=== PATIENT | female | born 1995 | race Caucasian/White ===

== ENCOUNTER 2018-05-27 10:35 | Inpatient (IN) | payer OTHER ==
[2018-07-25] MEDS ORDERED: RINGERS SOLUTION,LACTATED 1,000 ML IV PRN (23:59)
[2018-07-25] MEDS ORDERED: RINGERS SOLUTION,LACTATED 300 ML IV ONE (23:59)
[2018-07-25] MEDS ORDERED: DINOPROSTONE 10 MG VAGINAL INSERT.SR PV PRN (23:59)
[2018-07-26 00:19] LABS: APPEARANCE,URINE TURBID; BILIRUBIN,URINE NEGATIVE (NEGATIVE); COLOR,URINE YELLOW; GLUCOSE, URINE NEGATIVE (NEGATIVE); KETONES,URINE NEGATIVE (NEGATIVE); LEUKOCYTE ESTERASE,URINE NEGATIVE (NEGATIVE); NITRITE,URINE NEGATIVE (NEGATIVE); PROTEIN,URINE 30 mg/dL (NEGATIVE); URINE SPECIFIC GRAVITY 1.017; UROBILINOGEN,URINE NEGATIVE mg/dL (<2.0)
[2018-07-26 00:30] LABS: URINE AMPHETAMINES SCREEN NEGATIVE; URINE BARBITURATES SCREEN NEGATIVE; URINE BENZODIAZEPINES SCREEN NEGATIVE; URINE COCAINE SCREEN NEGATIVE; URINE METHADONE SCREEN NEGATIVE; URINE PHENCYCLIDINE SCREEN NEGATIVE
[2018-07-26 00:38] LABS: ABSOLUTE BASOPHILS # (AUTO) 0.1 10^3/uL (0.0-0.2); ABSOLUTE EOSINOPHILS # (AUTO) 0.1 10^3/uL (0.0-0.6); ABSOLUTE LYMPHOCYTES (AUTO) 2.2 10^3/uL (0.5-4.7); ABSOLUTE MONOCYTES (AUTO) 0.8 10^3/uL (0.1-1.4); EOSINOPHILS % (AUTO) 0.6 % (0-6); HEMATOCRIT 37.8 % (36.0-47.0); HEMOGLOBIN 13.1 g/dL (12.0-15.5); LYMPHOCYTES % (AUTO) 21.8 % (13-45); MEAN CORPUSCULAR HGB CONC 34.6 g/dL (32.0-36.0); MEAN CORPUSCULAR VOLUME 87 fl (80-97); MONOCYTES % (AUTO) 7.7 % (3-13); PLATELET COUNT 296 10^3/uL (150-450); RED BLOOD COUNT 4.37 10^6/uL (3.72-5.28); RED CELL DISTRIBUTION WIDTH 14.7 % (11.5-14.0); SEGMENTED NEUTROPHILS % (AUTO) 68.9 % (42-78); TOTAL CELLS COUNTED % (AUTO) 100 %; WHITE BLOOD COUNT 10.1 10^3/uL (4.0-10.5)
[2018-07-26 00:44] LABS: URINE MARIJUANA (THC) SCREEN NEGATIVE
[2018-07-26] MEDS ORDERED: OXYTOCIN 10 UNIT/ML VIAL ONE (00:48)
[2018-07-26] MEDS ORDERED: OXYTOCIN/NORMAL SALINE 20 UNIT/1,000 ML RTUINJ ONE (00:49)
[2018-07-26] MEDS ORDERED: DINOPROSTONE 10 MG VAGINAL INSERT.SR ONE (00:49)
[2018-07-26] MEDS ORDERED: MISOPROSTOL 0.2 MG TABLET ONE (00:49)
[2018-07-26] MEDS ORDERED: LIDOCAINE 1% INJ-PF (10 MG/ML) 30 ML SDV ONE (00:49)
[2018-07-26] MEDS ORDERED: ZOLPIDEM TARTRATE 5 MG TABLET ONE (02:16)
[2018-07-26] MEDS ORDERED: OXYTOCIN/NORMAL SALINE 20 UNIT/1,000 ML RTUINJ IV PRN (13:40)
--- NOTE | 2018-07-26 15:17 | Admission Physical ---
Datetime Report Generated by CPN: 07/26/2018 15:17 CURRENT ADMISSION Chief Complaint: Scheduled Induction of Labor Indication for Induction: PreEclampsia Admit Impression : Term, Intrauterine Admit Plan: Admit to Unit; Initiate Labor Induction Protocol ALLERGIES Medication Allergies: No Medication Allergies: No Known Allergies (07/25/2018) Latex: No Latex Allergies Food Allergies: none Environmental Allergies: none OBSTETRICAL HISTORY EDC: 08/14/2018 00:00 : 1 Para: 0 Term: 0 : 0 SAB: 0 IAB: 0 Ectopic: 0 Livin Cesareans: 0 VBACs: 0 Multiple Births: 0 Gestational Diabetes: Yes Rh Sensitization: No Incompetent Cervix: No ELAN: No Infertility: No ART Treatment: No Uterine Anomaly: No IUGR: No Hx Previous C/S: No Macrosomia: No Hx Loss/Stillborn: No PIH: No Hx : No Placenta Previa/Abruption: No Depression/PP Depression: No PTL/PROM: No Post Hemorrhage: No Current Procedures: Ultrasound; NST Obstetrical History Comments: G1- Current , GDM, pre-e SEE RECORDS Alcohol: No Marijuana : No Cocaine: No Other Illicit Drugs: No Cigarettes: Never Smoker. 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 Surgery: No Heart Disease: No Hosp/Surgery: Yes Autoimmune Disorder: No Anesthetic Complications: No Kidney Disease: No Abnormal Pap Smear: No Neuro/Epilepsy: No Psychiatric Disorders: No Other Medical Diseases: No Hepatitis/Liver Disease: No Significant Family History: No Varicosities/Phlebitis: No Trauma/Violence : No Thyroid Dysfunction: No Medical History Comments: tonsilectomy, adenoidectomy hx of blood clots in lungs 2016 INFECTIOUS HISTORY Gonorrhea: No Genital Herpes: No Chlamydia: No Tuberculosis: No Syphilis: No Hepatitis: No HIV/AIDS Exposure: No Rash or Viral Illness: No HPV: No PHYSICAL EXAM General: Normal HEENT: Normal Neurologic: Normal Thyroid: Deferred Heart: Normal Lungs: Normal Breast: Deferred Back: Deferred Abdomen: Normal Genitourinary Exam: Deferred Extremities: Normal DTRs: Normal Pelvic Type: Not Done Vital Signs: Reviewed MEMBRANES Membranes: Intact FETUS A EGA: 37.2 Monitoring: External US FHR- Baseline: 150 Accelerations: 15X15 Presentation: Vertex Admit Comment: G1 Scheduled IOL for pre-eclampsia Had Cervidil at 0100, removed at 1300 Beginning Pitocin now Hx PE in 2025 while on ocps GDM Antepartum records in chart PLANS FOR LABOR AND DELIVERY Labor and Delivery: None Pain Management: Natural Feeding Preference: Breast Benefit of Breast Feed Discussed: Yes Circumcision: N/A INFORMED CONSENT Assignment: Harmeet Parks MD Signature: with User ID: Charlotte : with User ID: Charlotte : I personally evaluated and examined the patient in conjunction with the MLP and agree with the assessment, treatment plan and disposition.
[2018-07-26] MEDS: ZOLPIDEM TARTRATE 5 MG TABLET PO SCH (15:45)
[2018-07-26] MEDS ORDERED: NALBUPHINE HCL INJ 10 MG/1 ML AMPULE ONE (17:33)
[2018-07-26] MEDS ORDERED: NALBUPHINE HCL INJ 10 MG/1 ML AMPULE INJ ONE (17:35)
[2018-07-26] MEDS ORDERED: PHENYLEPHRINE HCL INJ/PF 10 MG/1 ML SDV ONE (20:17)
[2018-07-26] MEDS ORDERED: EPHEDRINE SULFATE INJ 50 MG/1 ML AMPULE ONE (20:18)
[2018-07-26] MEDS ORDERED: FENTANYL/BUPIVACAINE/NS/PF 300 MCG/150 ML RTUINJ EPI ONE (20:18)
[2018-07-26] MEDS ORDERED: FENTANYL CITRATE INJ/PF 100 MCG/2 ML AMPUL ONE (20:18)
[2018-07-26] MEDS ORDERED: BUPIVACAINE HCL 0.25 % INJ/PF (2.5 MG/1 ML) 30 ML VIAL ONE (20:18)
[2018-07-26 20:39] LABS: ABSOLUTE LYMPHOCYTES (AUTO) 1.3 10^3/uL (0.5-4.7); ABSOLUTE MONOCYTES (AUTO) 0.9 10^3/uL (0.1-1.4); ABSOLUTE NEUT (AUTO) 16.2 10^3/uL (1.7-8.2); BASOPHILS % (AUTO) 0.2 % (0-2); EOSINOPHILS % (AUTO) 0.1 % (0-6); HEMATOCRIT 38.5 % (36.0-47.0); HEMOGLOBIN 13.3 g/dL (12.0-15.5); LYMPHOCYTES % (AUTO) 6.9 % (13-45); MEAN CORPUSCULAR HEMOGLOBIN 29.8 pg (27.0-33.4); MEAN CORPUSCULAR HGB CONC 34.6 g/dL (32.0-36.0); MEAN CORPUSCULAR VOLUME 86 fl (80-97); MONOCYTES % (AUTO) 4.8 % (3-13); PLATELET COUNT 273 10^3/uL (150-450); RED BLOOD COUNT 4.46 10^6/uL (3.72-5.28); RED CELL DISTRIBUTION WIDTH 14.1 % (11.5-14.0); TOTAL CELLS COUNTED % (AUTO) 100 %; WHITE BLOOD COUNT 18.4 10^3/uL (4.0-10.5)
[2018-07-26] MEDS ORDERED: LIDOCAINE 1.5%/EPINEPHRINE INJ 5 ML AMP ONE (21:00)
[2018-07-27] MEDS ORDERED: CITRIC ACID/SODIUM CITRATE ORAL SOLN 15 ML UDCUP ONE (01:24)
[2018-07-27] MEDS ORDERED: CEFAZOLIN 2 GM/D5W RTU 0 GM/0 ML RTUPB IV ONE (01:25)
[2018-07-27] MEDS ORDERED: PSEUDOEPHEDRINE HCL 30 MG TABLET PO PRN (02:07)
[2018-07-27] MEDS ORDERED: ACETAMINOPHEN 650 MG SUPP.RECT PR PRN (02:07)
[2018-07-27] MEDS ORDERED: PROMETHAZINE HCL 25 MG TABLET PO PRN (02:07)
[2018-07-27] MEDS ORDERED: ZOLPIDEM TARTRATE 5 MG TABLET PO PRN (02:07)
[2018-07-27] MEDS ORDERED: DIPHENHYDRAMINE HCL 25 MG CAPSULE PO PRN (02:07)
[2018-07-27] MEDS ORDERED: ACETAMINOPHEN WITH CODEINE #3 TABLET PO PRN (02:07)
[2018-07-27] MEDS ORDERED: DIPH/PERTUSS(ACELL)/TETANUS VAC/PF 0.5 ML SYR (>=10YO) IM PRN (02:07)
[2018-07-27] MEDS ORDERED: OXYTOCIN/NORMAL SALINE 20 UNIT/1,000 ML RTUINJ IV PRN (02:07)
[2018-07-27] MEDS ORDERED: BENZOCAINE/MENTHOL AEROSOL SPRAY 56 ML TOP PRN (02:07)
[2018-07-27] MEDS ORDERED: DIBUCAINE 1% OINTMENT 56 GM TP PRN (02:07)
[2018-07-27] MEDS ORDERED: PROMETHAZINE HCL 25 MG SUPP.RECT PR PRN (02:07)
[2018-07-27] MEDS ORDERED: PROMETHAZINE HCL INJ 25 MG/1 ML VIAL IV PRN (02:07)
[2018-07-27] MEDS ORDERED: MEASLES,MUMPS&RUBELLA VACC/PF 0.5 ML VIAL SUBCUT PRN (02:07)
[2018-07-27] MEDS ORDERED: MAGNESIUM HYDROXIDE SUSP 30 ML UDCUP PO PRN (02:07)
[2018-07-27] MEDS ORDERED: GLYCERIN/WITCH HAZEL LEAF 1 EACH MED..WIPE TP PRN (02:07)
[2018-07-27] MEDS ORDERED: NA PHOS,M-B/NA PHOS,DI-BA (ADULT) 133 ML ENEMA PR PRN (02:07)
[2018-07-27] MEDS ORDERED: CEFAZOLIN 1 GM/D5W RTU 1 GM/50 ML RTUPB IV ONE ×2 (02:09→02:25)
--- NOTE | 2018-07-27 04:06 | Delivery Summary ---
Del Sum A-C Datetime Report Generated by CPN: 07/27/2018 04:05 DELIVERY PERSONNEL DELIVERY PERSONNEL: [id number] Delivery Doctor:: Harmeet Parks MD Labor and Delivery Nurse:: Sandy Cowan RN (Annotations: Data stored by Benjamín on behalf of user) Nursery Nurse:: Kristin Connolly RN Script Developer/ETIOLOGY TEACHER: Karis Hernandez, ST MATERNAL INFORMATION Delivery Anesthesia: Epidural Medications After Delivery: Pitocin Drip 20 Units/1000ml NSS; Cytotec 1000mcg Per Rectum/Vagina Maternal Complications: Other Complication Details: gestational diabetes, preeclampsia LABOR SUMMARY EDC: 08/14/2018 00:00 No. Babies in Womb: 1 Labor Anesthesia: Epidural LABOR INFORMATION Reason for Induction: Pre-Eclampsia; Other Reason for Induction- Other: GDM Onset of Labor: 07/27/2018 17:35 Complete Dilatation: 07/27/2018 00:53 Cervical Ripening Agents: Cervidil Oxytocin: Induction Group B Beta Strep: negative Steroids Given: None Reason Steroids Not Administered: Not Applicable MEMBRANES Membranes Rupture Method: Spontaneous Rupture of Membranes: 07/27/2018 15:43 Length of Rupture (hr): -14.03 Amniotic Fluid Color: Clear Amniotic Fluid Amount: Small Amniotic Fluid Odor: Normal STAGES OF LABOR Stage 1 hr: -16 Stage 1 min: -42 Stage 2 hr: 0 Stage 2 min: 48 Stage 3 hr: 0 Stage 3 min: 3 Total Time in Labor hr: -15 Total Time in Labor min: -51 VAGINAL DELIVERY Episiotomy: None Laceration #1: Vaginal Laceration Extension #1: N/A Laceration Repair: Yes Laceration Repair Note: 2=0 vicryl; CSECTION DELIVERY Primary Indication: N/A BABY A INFORMATION Infant Delivery Date/Time: 07/27/2018 01:41 Method of Delivery: Vaginal Born in Route : No : N/A Forceps: N/A Vacuum Extraction: Successful Shoulder Dystocia : No ASSISTED DELIVERY BABY A Indication for Assisted Delivery: nonreassuring FHTs Catheter Prior to Procedure: Yes Station Vacuum/Forcep Apply: 0 Position Vacuum/Forcep Apply: Right Occipital Anterior Vacuum Number of Pulls: 2 Vacuum Number of PopOffs: 0 Reduce Pressure btwn Ctx: Yes Vacuum Repairer Art Objects: kiwi PRESENTATION/POSITION BABY A Presentation: Cephalic Cephalic Presentation: Vertex Vertex Position: Right Occipital Anterior Breech Presentation: N/A PLACENTA INFORMATION BABY A Placenta Delivery Time : 07/27/2018 01:44 Placenta Method of Delivery: Spontaneous Placenta Status: Delivered SCORES BABY A Heart Rate 1 min: >100 bpm Resp Effort 1 min: Good Cry Reflex Irritability 1 min: Cough or Sneeze or Pulls Away Muscle Tone 1 min: Active Motion Color 1 min: Blue/Pale Resuscitation Effort 1 min: Tactile Stimulation SCORE 1 MIN: 8 Heart Rate 5 min: >100 bpm Resp Effort 5 min: Good Cry Reflex Irritability 5 min: Cough or Sneeze or Pulls Away Muscle Tone 5 min: Active Motion Color 5 min: Body [place], Extremities Blue Resuscitation Effort 5 min: Tactile Stimulation SCORE 5 MIN: 9 INFANT INFORMATION BABY A Infant Sex: Female IDENTIFICATION BABY A Infant Verification Date/Time: 07/27/2018 02:16 ID Band Number: [id number] Mother's Name Verified: Yes Infant RN Verifying Infant: C Gentilin, RN C. Bactat,RN WEIGHT/LENGTH BABY A Infant Birthweight (gm): 3133 Infant Weight (lb): 6 Infant Weight (oz): 15 Length (in): 20.00 Infant Length (cm): 50.80 CORD INFORMATION BABY A No. Cord Vessels: 3 Nuchal Cord : Around Neck x1, Tight Cord Blood Taken: Yes-For Storage (Mom's Blood type +) Infant Suction: None ASSESSMENT BABY A Infant Complications: None Physical Findings at Delivery: Within Normal Limits Skin to Skin: Yes Transferred To: Remains with Mother SIGNATURES Signature: with User ID: [email or web address] : I personally evaluated and examined the patient in conjunction with the MLP and agree with the assessment, treatment plan and disposition.
[2018-07-27] MEDS: ZOLPIDEM TARTRATE 5 MG TABLET PO SCH (04:52)
[2018-07-27] MEDS: IBUPROFEN 800 MG TABLET PO SCH ×3 (06:09→21:29)
[2018-07-27] MEDS: SENNOSIDES/DOCUSATE 8.6-50 MG 1 EACH TABLET PO SCH (09:38)
[2018-07-27] MEDS: DOCUSATE SODIUM 100 MG CAPSULE PO SCH ×2 (09:38→18:03)
[2018-07-27] MEDS: PRENATAL VITAMIN W DHA CAPSULE PO SCH (09:38)
[2018-07-27] MEDS: FAMOTIDINE 20 MG TABLET PO SCH ×2 (09:38→21:30)
[2018-07-27] MEDS: FERROUS SULFATE 325 MG TABLET PO SCH ×2 (09:38→18:03)
--- NOTE | 2018-07-27 10:26 | PDOC PROGRESS REPORT ---
Subjective-OB Progress Note for:: 07/27/18 Subjective: Doing well, no c/o, voiding, eating well, ambulating Physical Exam (OB) Vital Signs: Temp Pulse Resp BP Pulse Ox 98.7 F 100 16 125/79 96 07/27/18 08:03 07/27/18 08:03 07/27/18 08:03 07/27/18 08:03 07/27/18 08:03 Intake & Output 07/26/18 07/27/18 07/28/18 06:59 06:59 06:59 Weight 85 kg - PIH/Pre-Eclampsia DTR's: 1 + Clonus: Negative Headache: Absent Epigastric Pain: No Visual Changes: No - Lochia Lochia Amount: Scant < 10 ml Lochia Color: Rubra/Red - Abdomen Description: Tender Hernia Present: No Fundal Description: Firm, Midline Fundal Height: u/u - u/2 Objective-Diagnostic Laboratory: 07/26/18 20:31 07/26/18 20:31 WBC 18.4 H RBC 4.46 Hgb 13.3 Hct 38.5 MCV 86 MCH 29.8 MCHC 34.6 RDW 14.1 H Plt Count 273 Seg Neutrophils % 88.0 H Lymphocytes % 6.9 L Monocytes % 4.8 Eosinophils % 0.1 Basophils % 0.2 Absolute Neutrophils 16.2 H Absolute Lymphocytes 1.3 Absolute Monocytes 0.9 Absolute Eosinophils 0.0 Absolute Basophils 0.0 Assessment and Plan(PN) - Assessment and Plan (1) Pre-eclampsia affecting childbirth Is this a current diagnosis for this admission?: Yes (2) Gestational diabetes mellitus Qualifiers: Gestational diabetes mellitus control: diet-controlled Trimester: second trimester Qualified Code(s): O24.410 - Gestational diabetes mellitus in , diet controlled Is this a current diagnosis for this admission?: Yes (3) Delivery normal Is this a current diagnosis for this admission?: Yes - Time Spent with Patient Time with patient: Less than 15 minutes Medications reviewed and adjusted accordingly: Yes - Disposition Anticipated Discharge: Home Within: within 24 hours
--- NOTE | 2018-07-27 10:30 | PDOC DISCHARGE SUMMARY ---
Final Diagnosis Discharge Date: 07/29/18 - Final Diagnosis (1) Pre-eclampsia affecting childbirth Is this a current diagnosis for this admission?: Yes (2) Gestational diabetes mellitus Is this a current diagnosis for this admission?: Yes (3) Delivery normal Is this a current diagnosis for this admission?: Yes Discharge Data - Discharge Medication Prescriptions: RX: Enoxaparin Sodium [Lovenox Inj 40 mg/0.4 ml Disp.syrin] 40 mg SUBCUT DAILY #30 disp.syrin Home Medications: RX: Enoxaparin Sodium [Lovenox Inj 40 mg/0.4 ml Disp.syrin] 40 mg SUBCUT DAILY #30 disp.syrin 07/27/18 Gestational Age: 37.2 Reason(s) for Admission: Induction of Labor, Medical Complications, Gestional Diabetes Procedures: NST, Ultrasound Intrapartum Procedure(s): Spontaneous Vaginal Delivery Complication(s): Laceration-Vaginal Laceration-Degree: 1st - [place] Data Baby 1 Female at 1 minute: 8 at 5 minutes: 9 Weight: 3.147 kg Home with Mother: Yes Complications: No - Diagnosis Test Laboratory: Temp Pulse Resp BP Pulse Ox 98.7 F 100 16 125/79 96 07/27/18 08:03 07/27/18 08:03 07/27/18 08:03 07/27/18 08:03 07/27/18 08:03 07/26/18 07/26/18 07/26/18 00:00 00:22 20:31 RBC 4.37 4.46 Hgb 13.1 13.3 Hct 37.8 38.5 Urine Opiates Screen NEGATIVE - Discharge information/Instructions Discharge Activity: Activity As Tolerated, No Lifting Over 10 Pounds, No Lifting/Push/Pulling, Pelvic Rest Discharge Diet: As Tolerated, Regular Disposition: HOME, SELF-CARE Follow up with: [facility] in: 1, Weeks
[2018-07-28] MEDS: IBUPROFEN 800 MG TABLET PO SCH ×3 (05:20→21:22)
[2018-07-28 06:48] LABS: MEAN CORPUSCULAR HEMOGLOBIN 30.2 pg (27.0-33.4); MEAN CORPUSCULAR HGB CONC 34.8 g/dL (32.0-36.0); MEAN CORPUSCULAR VOLUME 87 fl (80-97); PLATELET COUNT 192 10^3/uL (150-450); RED BLOOD COUNT 3.45 10^6/uL (3.72-5.28); RED CELL DISTRIBUTION WIDTH 14.6 % (11.5-14.0); WHITE BLOOD COUNT 11.2 10^3/uL (4.0-10.5)
[2018-07-28 06:52] LABS: HEMOGLOBIN 10.4 g/dL (12.0-15.5)
--- NOTE | 2018-07-28 09:16 | PDOC PROGRESS REPORT ---
Subjective-OB Progress Note for:: 07/28/18 Subjective: Doing well, no c/o, hsb at BS asleep Physical Exam (OB) Vital Signs: Temp Pulse Resp BP Pulse Ox 97.9 F 78 16 134/80 H 100 07/28/18 07:21 07/28/18 07:21 07/28/18 07:21 07/28/18 07:21 07/28/18 07:21 Intake & Output 07/27/18 07/28/18 07/29/18 06:59 06:59 06:59 Intake Total 1070 Balance 1070 Weight 85 kg Baby 1 Female 3.147 kg - PIH/Pre-Eclampsia DTR's: 2 + Clonus: Negative Headache: Absent Epigastric Pain: No Visual Changes: No - Lochia Lochia Amount: Scant < 10 ml Lochia Color: Serosa/Brown - Abdomen Description: Soft Hernia Present: No Fundal Description: Firm, Midline Fundal Height: u/u - u/2 Objective-Diagnostic Laboratory: 07/28/18 06:38 07/28/18 06:38 WBC 11.2 H RBC 3.45 L Hgb 10.4 L D Hct 30.0 L MCV 87 MCH 30.2 MCHC 34.8 RDW 14.6 H Plt Count 192 Assessment and Plan(PN) - Assessment and Plan (1) Pre-eclampsia affecting childbirth Is this a current diagnosis for this admission?: Yes (2) Gestational diabetes mellitus Qualifiers: Gestational diabetes mellitus control: diet-controlled Trimester: second trimester Qualified Code(s): O24.410 - Gestational diabetes mellitus in , diet controlled Is this a current diagnosis for this admission?: Yes (3) Delivery normal Is this a current diagnosis for this admission?: Yes - Time Spent with Patient Time with patient: Less than 15 minutes Medications reviewed and adjusted accordingly: Yes - Disposition Anticipated Discharge: Home Within: within 24 hours
[2018-07-28] MEDS: DOCUSATE SODIUM 100 MG CAPSULE PO SCH ×2 (09:42→18:30)
[2018-07-28] MEDS: FAMOTIDINE 20 MG TABLET PO SCH ×2 (09:42→21:23)
[2018-07-28] MEDS: SENNOSIDES/DOCUSATE 8.6-50 MG 1 EACH TABLET PO SCH (09:42)
[2018-07-28] MEDS: FERROUS SULFATE 325 MG TABLET PO SCH ×2 (09:42→18:30)
[2018-07-28] MEDS: PRENATAL VITAMIN W DHA CAPSULE PO SCH (09:42)
[2018-07-29] MEDS: IBUPROFEN 800 MG TABLET PO SCH (05:12)
--- NOTE | 2018-07-29 09:38 | PDOC PROGRESS REPORT ---
Subjective-OB Progress Note for:: 07/29/18 Subjective: Doing well, no c/o, ready to go home, hsb at BS Physical Exam (OB) Vital Signs: Temp Pulse Resp BP Pulse Ox 98.2 F 67 20 140/84 H 100 07/29/18 08:00 07/29/18 08:00 07/29/18 08:00 07/29/18 08:00 07/29/18 08:00 Intake & Output 07/28/18 07/29/18 07/30/18 06:59 06:59 06:59 Intake Total 1070 1250 Balance 1070 1250 Baby 1 Female 3.147 kg - PIH/Pre-Eclampsia DTR's: 2 + Clonus: Negative Headache: Absent Epigastric Pain: No Visual Changes: No - Lochia Lochia Amount: Scant < 10 ml Lochia Color: Serosa/Brown - Abdomen Description: Soft Hernia Present: No Fundal Description: Firm, Midline Fundal Height: u/u - u/2 Objective-Diagnostic Laboratory: 07/28/18 06:38 Assessment and Plan(PN) - Assessment and Plan (1) Pre-eclampsia affecting childbirth Is this a current diagnosis for this admission?: Yes (2) Gestational diabetes mellitus Qualifiers: Gestational diabetes mellitus control: diet-controlled Trimester: second trimester Qualified Code(s): O24.410 - Gestational diabetes mellitus in , diet controlled Is this a current diagnosis for this admission?: Yes (3) Delivery normal Is this a current diagnosis for this admission?: Yes - Time Spent with Patient Time with patient: Less than 15 minutes Medications reviewed and adjusted accordingly: Yes - Disposition Anticipated Discharge: Home Within: within 24 hours
--- NOTE | 2018-07-29 09:42 | PDOC DISCHARGE SUMMARY ---
Final Diagnosis Discharge Date: 07/29/18 - Final Diagnosis (1) Pre-eclampsia affecting childbirth Is this a current diagnosis for this admission?: Yes (2) Gestational diabetes mellitus Is this a current diagnosis for this admission?: Yes (3) Delivery normal Is this a current diagnosis for this admission?: Yes Discharge Data - Discharge Medication Prescriptions: Enoxaparin Sodium [Lovenox Inj 40 mg/0.4 ml Disp.syrin] 40 mg SUBCUT DAILY #30 disp.syrin Home Medications: Enoxaparin Sodium [Lovenox Inj 40 mg/0.4 ml Disp.syrin] 40 mg SUBCUT DAILY #30 disp.syrin 07/27/18 Gestational Age: 37.3 Reason(s) for Admission: Induction of Labor, PIH, Gestional Diabetes Procedures: NST, Ultrasound Intrapartum Procedure(s): Spontaneous Vaginal Delivery Complication(s): Laceration-Vaginal, Spinal Headache - [place] Data Baby 1 Female at 1 minute: 8 at 5 minutes: 9 Weight: 3.147 kg Home with Mother: Yes Complications: No - Diagnosis Test Laboratory: Temp Pulse Resp BP Pulse Ox 98.2 F 67 20 140/84 H 100 07/29/18 08:00 07/29/18 08:00 07/29/18 08:00 07/29/18 08:00 07/29/18 08:00 07/26/18 07/26/18 07/26/18 00:00 00:22 20:31 RBC 4.37 4.46 Hgb 13.1 13.3 Hct 37.8 38.5 Urine Opiates Screen NEGATIVE 07/28/18 06:38 RBC 3.45 L Hgb 10.4 L D Hct 30.0 L Urine Opiates Screen - Discharge information/Instructions Discharge Activity: Activity As Tolerated, No Lifting Over 10 Pounds, No Lifting/Push/Pulling, Pelvic Rest Discharge Diet: As Tolerated, Regular Disposition: HOME, SELF-CARE Follow up with: [facility] in: 1, Weeks
[2018-07-29] MEDS: PRENATAL VITAMIN W DHA CAPSULE PO SCH (10:14)
[2018-07-29] MEDS: SENNOSIDES/DOCUSATE 8.6-50 MG 1 EACH TABLET PO SCH (10:14)
[2018-07-29] MEDS: FERROUS SULFATE 325 MG TABLET PO SCH (10:14)
[2018-07-29] MEDS: DOCUSATE SODIUM 100 MG CAPSULE PO SCH (10:14)
[2018-07-29] MEDS: FAMOTIDINE 20 MG TABLET PO SCH (10:14)
[2018-07-29 12:28] VITALS: BP 139/83
== END 2018-07-29 15:48 | disposition home or self-care (01) | DRG 807 ==
LOC: LR 07-25 23:49 → 2N 07-27 04:20
PROVIDERS: ADMIT Obstetrics & Gynecology Gynecology; ATTEND Obstetrics & Gynecology Gynecology
PROC: 10D07Z6 Extraction of Products of Conception, Vacuum, Via Natural or Artificial Opening (ICD-10-PCS; principal; 2018-07-27)
PROC: 0HQ9XZZ Repair Perineum Skin, External Approach (ICD-10-PCS; 2018-07-27)
DX: O14.94 Unspecified pre-eclampsia, complicating childbirth (principal); Z37.0 Single live birth; O24.420 Gestational diabetes mellitus in childbirth, diet controlled; O69.81X0 Labor and delivery complicated by cord around neck, without compression, not applicable or unspecified; O76 Abnormality in fetal heart rate and rhythm complicating labor and delivery; O13.4 Gestational [pregnancy-induced] hypertension without significant proteinuria, complicating childbirth; O70.0 First degree perineal laceration during delivery; Z3A.37 37 weeks gestation of pregnancy
CPT/HCPCS: 36415; 80307; 81001; 85025; 85027; 86592; 86850; 86900; 86901; 94760; J0690; J2300; J2370; J2590; J3010; J3490

== ENCOUNTER 2018-07-18 09:56 | Outpatient (CLI) | payer OTHER ==
[2018-07-18 10:45] LABS: AMORPHOUS SEDIMENT,URINE TRACE /HPF; APPEARANCE,URINE CLOUDY; BILIRUBIN,URINE NEGATIVE (NEGATIVE); COLOR,URINE YELLOW; GLUCOSE, URINE NEGATIVE (NEGATIVE); KETONES,URINE NEGATIVE (NEGATIVE); LEUKOCYTE ESTERASE,URINE MODERATE (NEGATIVE); NITRITE,URINE NEGATIVE (NEGATIVE); PROTEIN,URINE NEGATIVE (NEGATIVE); URINE SPECIFIC GRAVITY 1.012; UROBILINOGEN,URINE NEGATIVE mg/dL (<2.0)
[2018-07-18 10:52] LABS: URINE AMPHETAMINES SCREEN NEGATIVE; URINE BARBITURATES SCREEN NEGATIVE; URINE BENZODIAZEPINES SCREEN NEGATIVE; URINE COCAINE SCREEN NEGATIVE; URINE MARIJUANA (THC) SCREEN NEGATIVE; URINE METHADONE SCREEN NEGATIVE; URINE PHENCYCLIDINE SCREEN NEGATIVE
[2018-07-18 10:53] LABS: UR PRO/CREAT RATIO RESULT 0.3 mg/mg (0.0-0.2); URINE CREATININE 86.6 mg/dL (16-327); URINE PROTEIN 24.1 mg/dL (<12)
[2018-07-18 11:01] LABS: ABSOLUTE EOSINOPHILS # (AUTO) 0.1 10^3/uL (0.0-0.6); ABSOLUTE LYMPHOCYTES (AUTO) 1.4 10^3/uL (0.5-4.7); ABSOLUTE MONOCYTES (AUTO) 0.5 10^3/uL (0.1-1.4); ABSOLUTE NEUT (AUTO) 7.1 10^3/uL (1.7-8.2); BASOPHILS % (AUTO) 0.4 % (0-2); EOSINOPHILS % (AUTO) 0.6 % (0-6); HEMATOCRIT 36.7 % (36.0-47.0); HEMOGLOBIN 12.8 g/dL (12.0-15.5); LYMPHOCYTES % (AUTO) 15.2 % (13-45); MEAN CORPUSCULAR HGB CONC 34.9 g/dL (32.0-36.0); MEAN CORPUSCULAR VOLUME 86 fl (80-97); MONOCYTES % (AUTO) 5.8 % (3-13); PLATELET COUNT 270 10^3/uL (150-450); RED BLOOD COUNT 4.27 10^6/uL (3.72-5.28); RED CELL DISTRIBUTION WIDTH 14.6 % (11.5-14.0); TOTAL CELLS COUNTED % (AUTO) 100 %; WHITE BLOOD COUNT 9.1 10^3/uL (4.0-10.5)
[2018-07-18 11:26] LABS: ALANINE AMINOTRANSFERASE 13 U/L (9-52); ALBUMIN 3.2 g/dL (3.5-5.0); ALKALINE PHOSPHATASE 133 U/L (38-126); ANION GAP 12 (5-19); ASPARTATE AMINO TRANSFERASE 16 U/L (14-36); BILIRUBIN,DIRECT 0.2 mg/dL (0.0-0.4); BILIRUBIN,TOTAL 0.3 mg/dL (0.2-1.3); BLOOD UREA NITROGEN 7 mg/dL (7-20); CALCIUM 9.6 mg/dL (8.4-10.2); CARBON DIOXIDE 19 mmol/L (22-30); CHLORIDE 106 mmol/L (98-107); GLUCOSE 117 mg/dL (75-110); POTASSIUM 3.8 mmol/L (3.6-5.0); SODIUM 137.1 mmol/L (137-145); TOTAL PROTEIN 6.1 g/dL (6.3-8.2); URIC ACID 4.9 mg/dL (2.5-6.2)
--- NOTE | 2018-07-18 12:10 | Non Stress Test Report ---
Non Stress Test Datetime Report Generated by CPN: 07/18/2018 12:09 DEMOGRAPHIC Test Number: 1 EGA NST: 36.1 INDICATION Indication for Study: Ordered by Provider VITAL SIGNS Temperature - NST: 98.8 Pulse - NST: 83 RESP - NST: 18 NBPSYS NST: 128 NBPDIA NST: 71 MONITORING Monitor Explained: Monitor Explained; Test Explained; Patient Verbalized Understanding Time on Monitor: 07/18/2018 10:19 Time off Monitor: 07/18/2018 12:05 NST Duration: 106 NST INTERVENTIONS NST Interventions: PO Hydration Physician Notified NST: Dr. Younger BABY A: [id number] BABY A Movement : Present Contraction Frequency : none FHR Baseline : 140 Accelerations : 15X15 Decelerations : None Variability : Moderate 6-25bpm NST Review: Meets Criteria for Reactive NST NST Review and Verified By : Fide Cancino RNC-OB NST Results: Reactive NST REPORT Report Trigger: Send Report
== END 2018-07-18 12:38 | disposition home or self-care (01) ==
LOC: LC 09:56
PROVIDERS: ATTEND Obstetrics & Gynecology
PROC: 4A1HXCZ Monitoring of Products of Conception, Cardiac Rate, External Approach (ICD-10-PCS; principal; 2018-07-18)
DX: O14.93 Unspecified pre-eclampsia, third trimester (principal); Z3A.36 36 weeks gestation of pregnancy
CPT/HCPCS: 36415; 59025; 80053; 80307; 81001; 82570; 83615; 84156; 84550; 85025

== ENCOUNTER 2018-07-25 10:48 | Outpatient (CLI) | payer OTHER ==
[2018-07-25 11:43] LABS: URINE AMPHETAMINES SCREEN NEGATIVE; URINE BARBITURATES SCREEN NEGATIVE; URINE BENZODIAZEPINES SCREEN NEGATIVE; URINE COCAINE SCREEN NEGATIVE; URINE MARIJUANA (THC) SCREEN NEGATIVE; URINE METHADONE SCREEN NEGATIVE; URINE PHENCYCLIDINE SCREEN NEGATIVE
[2018-07-25 11:49] LABS: UR PRO/CREAT RATIO RESULT 0.2 mg/mg (0.0-0.2); URINE CREATININE 135.4 mg/dL (16-327); URINE PROTEIN 29.3 mg/dL (<12)
[2018-07-25 12:31] LABS: ABSOLUTE LYMPHOCYTES (AUTO) 1.6 10^3/uL (0.5-4.7); ABSOLUTE MONOCYTES (AUTO) 0.6 10^3/uL (0.1-1.4); ABSOLUTE NEUT (AUTO) 6.9 10^3/uL (1.7-8.2); BASOPHILS % (AUTO) 0.3 % (0-2); EOSINOPHILS % (AUTO) 0.4 % (0-6); HEMATOCRIT 36.9 % (36.0-47.0); HEMOGLOBIN 12.7 g/dL (12.0-15.5); LYMPHOCYTES % (AUTO) 17.7 % (13-45); MEAN CORPUSCULAR HEMOGLOBIN 29.7 pg (27.0-33.4); MEAN CORPUSCULAR HGB CONC 34.5 g/dL (32.0-36.0); MEAN CORPUSCULAR VOLUME 86 fl (80-97); MONOCYTES % (AUTO) 6.9 % (3-13); PLATELET COUNT 266 10^3/uL (150-450); RED BLOOD COUNT 4.29 10^6/uL (3.72-5.28); RED CELL DISTRIBUTION WIDTH 14.4 % (11.5-14.0); SEGMENTED NEUTROPHILS % (AUTO) 74.7 % (42-78); TOTAL CELLS COUNTED % (AUTO) 100 %; WHITE BLOOD COUNT 9.2 10^3/uL (4.0-10.5)
[2018-07-25 13:10] LABS: ALANINE AMINOTRANSFERASE 19 U/L (9-52); ALBUMIN 3.3 g/dL (3.5-5.0); ALKALINE PHOSPHATASE 138 U/L (38-126); ANION GAP 8 (5-19); ASPARTATE AMINO TRANSFERASE 18 U/L (14-36); BILIRUBIN,DIRECT 0.2 mg/dL (0.0-0.4); BILIRUBIN,TOTAL 0.2 mg/dL (0.2-1.3); BLOOD UREA NITROGEN 7 mg/dL (7-20); CALCIUM 9.6 mg/dL (8.4-10.2); CARBON DIOXIDE 24 mmol/L (22-30); CHLORIDE 106 mmol/L (98-107); GLUCOSE 85 mg/dL (75-110); POTASSIUM 4.7 mmol/L (3.6-5.0); TOTAL PROTEIN 5.9 g/dL (6.3-8.2); URIC ACID 5.2 mg/dL (2.5-6.2)
--- NOTE | 2018-07-25 13:16 | Non Stress Test Report ---
Non Stress Test Datetime Report Generated by CPN: 07/25/2018 13:16 DEMOGRAPHIC EGA NST: 37.1 INDICATION Indication for Study: Other Indication for Study: Ordered by Provider Indication for Study (NST) Other: preeclampsia workup VITAL SIGNS Temperature - NST: 98.0 MONITORING Monitor Explained: Monitor Explained; Test Explained; Patient Verbalized Understanding Monitor Explained: Monitor Explained; Test Explained; Patient Verbalized Understanding Time on Monitor: 07/25/2018 12:47 Time off Monitor: 07/25/2018 13:07 NST Duration: 20 NST INTERVENTIONS NST Interventions: None NST Interventions: PO Hydration; Reposition Patient Physician Notified NST: K West CNM BABY A: [id number] BABY A Movement : Present Contraction Frequency : intermittent FHR Baseline : 140 FHR Baseline : 145 Accelerations : 15X15 Decelerations : None Variability : Moderate 6-25bpm NST Review: Meets Criteria for Reactive NST NST Review and Verified By : Rochelle Sharpe RN NST Results: Reactive NST REPORT Report Trigger: Send Report
== END 2018-07-25 13:22 | disposition home or self-care (01) ==
LOC: LC 10:48
PROVIDERS: ATTEND Obstetrics & Gynecology
PROC: 4A1HXCZ Monitoring of Products of Conception, Cardiac Rate, External Approach (ICD-10-PCS; principal; 2018-07-25)
DX: O14.93 Unspecified pre-eclampsia, third trimester (principal); Z3A.37 37 weeks gestation of pregnancy
CPT/HCPCS: 36415; 59025; 80053; 80307; 82570; 83615; 84156; 84550; 85025